=== PATIENT | male | born 1965 | race Caucasian/White ===

== ENCOUNTER → 2016-03-12 | Day surgery (SDC) | payer OTHER ==
[2016-02-11 15:50] VITALS: BMI 27.0
[2016-02-11 16:14] VITALS: BMI 27.0
--- NOTE | 2016-02-12 16:16 | Anesthesiology Progress Note ---
Anesthesia Progress Note Date of Service Feb 12, 2016. Progress Notes Spoke with PCP office regarding patient's seizure history. Per Trista at [facility], she states she discussed with HARI Bush and Dr. French who feel patient needs neurology clearance prior to surgery (strong history of non-compliance with neuro appointments per PCP office). She states that she will attempt to send document stating these recommendations. Discussed with surgeon's office who state patient will be rescheduled after neuro clearance in obtained. Surgeon's office made aware to inform patient regarding the above. Nell Nikc PA-C
[~2016-03-12] VITALS: Ht 160 cm; Wt 71.4 kg
[~2016-03-12] MED LIST: ASPI81TA28 PO; ATOR-22 PO; ATROPINE SULFATE 0.1 MG/ML 5ML SYR IV PRN; BUPIVACAINE/EPINEPHRINE 0.5% MPF 1:200,000 30 ML VIAL INJ ONE; CEFAZOLIN 2000 MG/60 ML D5W IV SCH; CIPR-255 PO; DEXAMETHASONE SOD INJ 4 MG/ML VIAL ONE; ERGO500037 PO; EpHEDrine SULFATE INJ 50 MG/ML AMP IV PRN; FENTANYL CITRATE INJ 50 MCG/1 ML 2 ML VIAL ONE; GLYCOPYRROLATE INJ 0.2 MG/ML VIAL ONE; HEPARIN SOD 5000 UNIT/0.5 ML CARP SQ SCH; HYDR-5688 PO; HYDROCODONE/ACETAMOPHEN 5/325MG TAB PO PRN; IBUPROFEN 600 MG TAB PO PRN; KETOROLAC TROMETHAMINE 15 MG/ML VIAL IV PRN; KETOROLAC TROMETHAMINE 30 MG/ML VIAL ONE; LACTATED RINGER'S 1000ML 1,000 ML IV SCH; LAMO25TA PO; LEVO175T3 PO; LIDOCAINE 2% 20 MG/ML 5ML SYR ONE; MIDAZOLAM HCL 1 MG/ML 2ML VIAL ONE; MoRPHine SULFATE 2 MG/ML CARP IV PRN; MoRPHine SULFATE 4 MG/ML 1 ML CARP\\VIAL IV PRN; ONDANSETRON INJ 2 MG/ML 2 ML VIAL IV PRN; ONDANSETRON INJ 2 MG/ML 2 ML VIAL ONE; PHENYLEPHRINE 100MCG/ML 5ML SYR ONE; PROPOFOL IV EMULSION 10 MG/ML 20 ML VIAL IV ONE; SYN150 PO
[2016-03-12 10:19] VITALS: BP 106/69; PULSE 64; TEMP 36.6; O2SAT 97; Ht 160 cm; Wt 71.4 kg
--- NOTE | 2016-03-12 11:52 | History & Physical Bridge Note ---
H&P Re-Evaluation Bridge Note: I have examined the patient, reviewed the History & Physical and in the interval since the performance of the History & Physical I have noted the following changes of clinical significance: No changes noted
--- NOTE | 2016-03-12 11:58 | Discharge Instructions ---
Discharge Instructions Admission Reason for Admission: Right Inguinal Hernia Discharge Discharge Diagnosis / Problem: right inguinal hernia Discharge Goals Goal(s): Decrease discomfort, Improve function Activity Recommendations Activity Limitations: as noted below Lifting Limitations: no more than 10 pounds Exercise/Sports Limitations: until after follow-up appointment May Resume Sexual Activity: after follow-up appointment Shower/Bathe: tomorrow . Instructions / Follow-Up Instructions / Follow-Up follow up with dr. obrien within 1-2 weeks. Current Hospital Diet Patient's current hospital diet: Discharge Diet Recommended Diet: Regular Diet Pending Studies Studies pending at discharge: no Laboratory Results Lipid Panel Test 12/30/15 07:35 Range/Units Triglycerides Level 276 H 0-150 mg/dl Cholesterol Level 326 H 0-200 mg/dl HDL Cholesterol 62 mg/dl Cholesterol/HDL Ratio 5.3 LDL Cholesterol, Calculated 209 mg/dl Medical Emergencies . Who to Call and When: Medical Emergencies: If at any time you feel your situation is an emergency, please call 911 immediately. . Non-Emergent Contact Non-Emergency issues call your: Primary Care Provider, Surgeon Call Non-Emergent contact if: temperature is above 101, wound has increased drainage, wound has increased redness . "Provider Documentation" section prepared by Du Obrien. VTE Core Measure Inpt VTE Proph given/why not?: Unfractionated heparin SQ
--- NOTE | 2016-03-12 12:07 | History and Physical ---
History & Physical Date & Time of Service: Mar 12, 2016 at 12:04 Chief Complaint: Right Inguinal Hernia Primary Care Physician: Vilma Villegas C.R.N.P Past Medical/Surgical History Medical Problems: (1) Heart disease Status: Chronic (2) Seizure disorder Status: Chronic Surgical Problems: (1) History of hernia repair Status: Resolved (2) Hx of appendectomy Status: Resolved Family History Cancer Diabetes mellitus Heart disease Hypertension Social History Smoking Status: Current Every Day Smoker Marital Status: single Occupational Status: unemployed Allergies Coded Allergies: Prochlorperazine (Verified Allergy, Severe, "throat closes up", 03/12/16) Meloxicam (Verified Allergy, Unknown, FACIAL FLUSHING GI UPSET, 03/12/16) Tamsulosin (Verified Allergy, Unknown, UNKNOWN, 03/12/16) Home Medications Scheduled Aspirin (Aspirin Ec), 81 MG PO QAM Atorvastatin (Lipitor), 1 TAB PO HS Ciprofloxacin Hcl (Cipro), 500 MG PO BID Levothyroxine Sodium (Levothyroxine Sodium), 1 TAB PO DAILY Scheduled PRN Hydrocodone/Acetaminophen 5MG/325MG ([place] 5MG/325MG), 1-2 TABLET PO Q4 PRN for Pain Physical Exam Vital Signs Date Time Temp Pulse Resp B/P Pulse Ox O2 Delivery O2 Flow Rate FiO2 03/12/16 10:19 36.6 64 18 106/69 97 Room Air General Appearance: no apparent distress Head: normocephalic Eyes: normal inspection ENT: normal ENT inspection Neck: supple Respiratory/Chest: lungs clear Cardiovascular: no edema, no gallop Abdomen/GI: normal bowel sounds, soft Back: normal inspection Extremities/Musculoskelatal: normal inspection Neurologic/Psych: pedigree researcher II-XII nml as tested, no motor/sensory deficits Skin: normal color + RIH. tender. penis/testicles normal Impression Assessment and Plan RIH. discussed options/risks. plan open repair of hernia with mesh VTE Prophylaxis Given or contraindicated: Unfractionated heparin SQ
--- NOTE | 2016-03-12 13:28 | [facility] Operative Report ---
Operative Report Operative Date Mar 12, 2016. Pre-Operative Diagnosis Right Inguinal Hernia/recurrent Post-Operative Diagnosis recurrent right inguinal hernia Procedure(s) Performed open repair of recurrent right inguinal hernia with mesh Surgeon Dr. Du Obrien Supervisor Yard Surgeon(s) Pranav Hussein PA-C Estimated Blood Loss 10ml Findings small indirect and direct hernias Specimens No specimen Anesthesia GET Complication(s) None Disposition Recovery Room / PACU I attest to the content of the Intraoperative Record and any orders documented therein. Any exceptions are noted below.
[2016-03-12] MEDS: FENTANYL CITRATE INJ 50 MCG/1 ML 2 ML VIAL IV PRN ×3 (13:40→13:54)
--- NOTE | 2016-03-12 14:17 | Anesthesiology Progress Note ---
Anesthesia Post Op Note Date & Time Mar 12, 2016 at 14:17 Vital Signs Pain Intensity: 5 Vital Signs Past 12 Hours Date Time Temp Pulse Resp B/P Pulse Ox O2 Delivery O2 Flow Rate FiO2 03/12/16 14:10 36.6 03/12/16 14:08 112/75 03/12/16 14:05 63 18 99 03/12/16 14:05 63 18 03/12/16 14:03 115/77 03/12/16 14:00 64 16 93 03/12/16 14:00 61 16 03/12/16 13:59 59 16 03/12/16 13:59 58 16 118/74 93 03/12/16 13:55 114/86 03/12/16 13:54 67 19 03/12/16 13:54 68 19 95 03/12/16 13:49 57 16 03/12/16 13:49 58 16 100 03/12/16 13:48 101/78 03/12/16 13:44 62 14 108/80 100 03/12/16 13:44 63 14 03/12/16 13:40 137/88 03/12/16 13:39 66 14 03/12/16 13:39 66 14 100 03/12/16 13:34 61 16 100 03/12/16 13:34 36.6 61 14 119/72 100 Mask 10 03/12/16 13:34 61 16 03/12/16 10:19 36.6 64 18 106/69 97 Room Air Notes Mental Status: alert / awake / arousable, participated in evaluation Pt Amnestic to Procedure: Yes Nausea / Vomiting: adequately controlled Pain: adequately controlled Airway Patency, RR, SpO2: stable & adequate BP & HR: stable & adequate Hydration State: stable & adequate Anesthetic Complications: no major complications apparent
--- NOTE | 2016-03-12 14:23 | OPERATIVE REPORT ---
DATE OF OPERATION: 03/12/2016 PREOPERATIVE DIAGNOSIS: Recurrent right inguinal hernia. POSTOPERATIVE DIAGNOSIS: Direct and indirect recurrent right inguinal hernia. PROCEDURE: Open right inguinal hernia repair with mesh, open repair of recurrent right inguinal hernia with mesh. SURGEON: Dr. Obrein. PUBLICATIONS PRODUCTION SUPERVISOR: Hernandez Rock PA-C. ESTIMATED BLOOD LOSS: 10 mL. COMPLICATIONS: No immediate. ANESTHESIA: General. CONDITION: The patient tolerated the procedure well. OPERATIVE NOTE: After informed consent was obtained, the patient was taken to the operating suite and placed in the supine position. After successful intubation a Hackett catheter was placed and the right groin was shaved and sterilely prepped and draped in the usual fashion. An inguinal incision was made using a 10 blade scalpel and carried down through the soft tissue using electrocautery. The external oblique aponeurosis was skeletonized and opened with a fresh blade. It was extended distally through the ring and also several centimeters proximally. Once in the inguinal canal, there was some scarring. There was no old prior mesh, but there was a fair amount of scarring. We were able to free up the cord and cord structures using primarily blunt dissection. Eventually we were able to figure out the anatomy and noted a small distal direct hernia and there was also a small indirect hernia. We were able to free up the indirect sac from the cord and cord structures do not get back into the abdominal cavity. We were also able to easily reduce the direct hernia. Once we had all this accomplished, we placed a polypropylene lr hole mesh as an onlay. We secured distally the John's ligament laterally along the shelving portion of John's ligament and medially along the midline abdominal musculature. The "arms" were wrapped around behind the cord and cord structures and secured the underlying muscle. This was all performed with 0 Nurolon. Once this was done, the mesh laid nice and tension free. There was no cord impingement. We thoroughly irrigated the wound. There was adequate hemostasis at the end of the procedure. We injected the edges of the mesh with Marcaine. We then closed the external oblique aponeurosis with 2-0 Vicryl in a running fashion. Soft tissue was irrigated and closed using 3-0 Vicryl and 4-0 Monocryl. Some additional Marcaine was injected in the skin and soft tissue and the Dermabond glue was used as a dressing. The patient was awakened, extubated, and transferred to recovery in stable condition. I attest to the content of the Intraoperative Record and any orders documented therein. Any exceptio ns are noted below.
[2016-03-12 14:25] VITALS: BP 106/71; PULSE 64; TEMP 36.5; O2SAT 97
[2016-03-12 14:55] VITALS: BP 129/85; PULSE 69; O2SAT 98
[2016-03-12 15:25] VITALS: BP 142/91; PULSE 54; TEMP 37.1; O2SAT 99
== END | disposition home or self-care (01) ==
LOC: C.ACU 10:05
PROVIDERS: ATTEND Surgery
DX: K40.91 Unilateral inguinal hernia, without obstruction or gangrene, recurrent (principal); F41.9 Anxiety disorder, unspecified; N52.9 Male erectile dysfunction, unspecified; I25.2 Old myocardial infarction; G40.909 Epilepsy, unspecified, not intractable, without status epilepticus; F17.210 Nicotine dependence, cigarettes, uncomplicated

== ENCOUNTER 2016-04-28 15:16 | Emergency (ER) | payer OTHER ==
[~2016-04-28] VITALS: Ht 160 cm; Wt 70.0 kg
[~2016-04-28 15:16] MED LIST changes: -ATROPINE SULFATE 0.1 MG/ML 5ML SYR IV PRN; -BUPIVACAINE/EPINEPHRINE 0.5% MPF 1:200,000 30 ML VIAL INJ ONE; -CEFAZOLIN 2000 MG/60 ML D5W IV SCH; -DEXAMETHASONE SOD INJ 4 MG/ML VIAL ONE; -ERGO500037 PO; -EpHEDrine SULFATE INJ 50 MG/ML AMP IV PRN; -FENTANYL CITRATE INJ 50 MCG/1 ML 2 ML VIAL ONE; -GLYCOPYRROLATE INJ 0.2 MG/ML VIAL ONE; -HEPARIN SOD 5000 UNIT/0.5 ML CARP SQ SCH; -HYDROCODONE/ACETAMOPHEN 5/325MG TAB PO PRN; -IBUPROFEN 600 MG TAB PO PRN; -KETOROLAC TROMETHAMINE 15 MG/ML VIAL IV PRN; -KETOROLAC TROMETHAMINE 30 MG/ML VIAL ONE; -LACTATED RINGER'S 1000ML 1,000 ML IV SCH; -LAMO25TA PO; -LIDOCAINE 2% 20 MG/ML 5ML SYR ONE; -MIDAZOLAM HCL 1 MG/ML 2ML VIAL ONE; -MoRPHine SULFATE 2 MG/ML CARP IV PRN; -MoRPHine SULFATE 4 MG/ML 1 ML CARP\\VIAL IV PRN; -ONDANSETRON INJ 2 MG/ML 2 ML VIAL IV PRN; -ONDANSETRON INJ 2 MG/ML 2 ML VIAL ONE; -PHENYLEPHRINE 100MCG/ML 5ML SYR ONE; -PROPOFOL IV EMULSION 10 MG/ML 20 ML VIAL IV ONE; -SYN150 PO
[2016-04-28 15:24] VITALS: TEMP 36.6; O2SAT 98; Ht 160 cm; Wt 70.0 kg
[2016-04-28] MEDS ORDERED: ONDANSETRON INJ 2 MG/ML 2 ML VIAL IV STA (15:29)
[2016-04-28] MEDS ORDERED: SODIUM CHLORIDE 0.9% 1000ML 1,000 ML IV STA (15:29)
[2016-04-28] MEDS ORDERED: LAMO25TA PO (15:38)
[2016-04-28] MEDS ORDERED: ERGO500037 PO (15:38)
--- NOTE | 2016-04-28 15:59 | DIAGNOSTIC IMAGING REPORT ---
SINGLE VIEW CHEST CLINICAL HISTORY: Syncope. Generalized abdominal pain. FINDINGS: An AP, portable, upright chest radiograph is obtained. No prior studies are available for comparison at the time of dictation. The examination is mildly degraded by portable technique and patient rotation. The cardiomediastinal silhouette is unremarkable. The lungs and pleural spaces are clear. There is mild apical scarring. No pneumothorax is seen. The bony thorax is grossly intact. IMPRESSION: No active disease in the chest. Electronically signed by: Refugio Delvalle M.D. 04/28/2016 3:57 PM Dictated Date/Time: 04/28/2016 3:57 PM
[2016-04-28 16:41] LABS: BASO % 0.6 %; BASO ABS # 0.04 K/uL (0-0.2); COMPLETE YES; EOS % 2.7 %; HEMATOCRIT 44.6 % (42-52); IG% 0.1 %; LYMPH % 36.8 %; LYMPH ABS # 2.58 K/uL (1.2-3.4); MEAN CELL VOLUME 93.1 fL (80-100); MEAN CORPUSCULAR HEMOGLOBIN 31.5 pg (25-34); MEAN CORPUSCULAR HGB CONC 33.9 g/dl (32-36); MEAN PLATELET VOLUME 9.8 fL (7.4-10.4); MONO % 9.1 %; NEUT % 50.7 %; PLATELET COUNT 254 K/uL (130-400); RED BLOOD COUNT 4.79 M/uL (4.7-6.1); WHITE BLOOD COUNT 7.02 K/uL (4.8-10.8)
[2016-04-28 16:59] LABS: ALT/SGPT 28 U/L (12-78); BLOOD UREA NITROGEN 11 mg/dl (7-18); BUN/CREATININE RATIO 9.6 (10-20); CALCIUM 9.3 mg/dl (8.5-10.1); CARBON DIOXIDE 26 mmol/L (21-32); CHLORIDE 103 mmol/L (98-107); GLUCOSE 90 mg/dl (70-99); POTASSIUM 4.1 mmol/L (3.5-5.1); SODIUM 137 mmol/L (136-145)
[2016-04-28 17:01] LABS: ALKALINE PHOSPHATASE 68 U/L (45-117); AST/SGOT 29 U/L (15-37)
[2016-04-28 17:02] LABS: URINE APPEARANCE CLEAR (CLEAR); URINE BILIRUBIN NEG (NEG); URINE COLOR YELLOW; URINE EPITHELIAL CELL AUTO 0-5 /lpf (0-5); URINE NITRITE NEG (NEG); URINE PH 7.5 (4.5-7.5); URINE SPECIFIC GRAVITY 1.005 (1.000-1.030); UROBILINOGEN NEG (NEG); ZZUR CULT IF INDIC CLEAN CATCH NO
[2016-04-28 17:03] LABS: MANUAL MICROSCOPIC REQUIRED? NO; REVIEW REQ? NO
--- NOTE | 2016-04-28 17:59 | EMERGENCY ROOM VISIT NOTE ---
History Report prepared by Lina: Lizeth Mims Under the Supervision of: Dr. Speedy Bowles D.O. First contact with patient: 15:23 Stated Complaint: SYNCOPE History of Present Illness The patient is a 51 year old male who presents to the Emergency Room with complaints of two syncopal episodes beginning yesterday. The patient states that he had the flu last week and since then has been experiencing many episodes a day of diarrhea. He also notes abdominal pain. Beginning yesterday the patient experienced a syncopal episode. He notes he felt lightheaded before LOC and falling to the ground. Today the same syncopal episode occurred. He denies seizure like activity, biting of the tongue, or voiding himself during the episode. Source of History: patient Onset: yesterday Position: other Symptom Intensity: 2 Quality: other (syncope) Timing: other (episodes) Associated Symptoms: + abdominal pain, + diarrhea Note: He denies seizure like activity, biting of the tongue, or voiding himself during the episode. Review of Systems See HPI for pertinent positives & negatives. A total of 10 systems reviewed and were otherwise negative. Past Medical & Surgical Medical Problems: (1) Heart disease (2) Seizure disorder Surgical Problems: (1) History of hernia repair (2) Hx of appendectomy Family History Cancer Diabetes mellitus Heart disease Hypertension Social History Smoking Status: Current Every Day Smoker Alcohol Use: none Marital Status: single Housing Status: lives with significant other Occupation Status: unemployed Current/Historical Medications Scheduled Aspirin (Aspirin Ec), 81 MG PO QAM Atorvastatin (Lipitor), 1 TAB PO HS Ergocalciferol (Vitamin D 77551 Unit), 50,000 UNIT PO WK Lamotrigine (Lamictal), 50 MG PO BID Levothyroxine Sodium (Levothyroxine Sodium), 1 TAB PO DAILY Allergies Coded Allergies: Prochlorperazine (Verified Allergy, Severe, "throat closes up", 04/28/16) Meloxicam (Verified Allergy, Unknown, FACIAL FLUSHING GI UPSET, 04/28/16) Tamsulosin (Verified Allergy, Unknown, UNKNOWN, 04/28/16) Physical Exam Vital Signs Date Time Temp Pulse Resp B/P Pulse Ox O2 Delivery O2 Flow Rate FiO2 04/28/16 17:30 57 15 133/93 Room Air 04/28/16 16:45 64 18 133/83 98 Room Air 74 149/93 73 120/84 04/28/16 16:30 60 18 126/97 97 Room Air 04/28/16 16:15 63 04/28/16 15:24 98 Room Air 04/28/16 15:24 36.6 74 18 150/101 98 Room Air Physical Exam CONSTITUTIONAL/VITAL SIGNS: Reviewed / noted above. GENERAL: Non-toxic in appearance. INTEGUMENTARY: Warm, dry, and [place]. HEAD: Normocephalic. EYES: without scleral icterus or trauma. ENT/OROPHARYNX: clear and moist. LYMPHADENOPATHY/NECK: Is supple without lymphadenopathy or meningismus. RESPIRATORY: Lungs clear and equal. CARDIOVASCULAR: Regular rate and rhythm. GI/ABDOMEN: Soft and nontender. No organomegaly or pulsatile mass. No rebound or guarding. Normal bowel sounds. EXTREMITIES: Warm and well perfused. BACK: No CVA tenderness. NEUROLOGICAL: Intact without focal deficits. PSYCHIATRIC: normal affect. MUSCULOSKELETAL: Normally developed with good muscle tone. Medical Decision & Procedures ER Provider Diagnostic Interpretation: X ray results and stated below per my interpretation and radiology interpretation. SINGLE VIEW CHEST CLINICAL HISTORY: Syncope. Generalized abdominal pain. FINDINGS: An AP, portable, upright chest radiograph is obtained. No prior studies are available for comparison at the time of dictation. The examination is mildly degraded by portable technique and patient rotation. The cardiomediastinal silhouette is unremarkable. The lungs and pleural spaces are clear. There is mild apical scarring. No pneumothorax is seen. The bony thorax is grossly intact. IMPRESSION: No active disease in the chest. Electronically signed by: Refugio Delvalle M.D. 04/28/2016 3:57 PM Dictated Date/Time: 04/28/2016 3:57 PM Laboratory Results 04/28/16 16:25 Red Blood Count 4.79, Mean Corpuscular Volume 93.1, Mean Corpuscular Hemoglobin 31.5, Mean Corpuscular Hemoglobin Concent 33.9, Mean Platelet Volume 9.8, Neutrophils (%) (Auto) 50.7, Lymphocytes (%) (Auto) 36.8, Monocytes (%) (Auto) 9.1, Eosinophils (%) (Auto) 2.7, Basophils (%) (Auto) 0.6, Neutrophils # (Auto) 3.56, Lymphocytes # (Auto) 2.58, Monocytes # (Auto) 0.64, Eosinophils # (Auto) 0.19, Basophils # (Auto) 0.04 04/28/16 16:25 Test 04/28/16 16:00 04/28/16 16:25 Urine Color YELLOW Urine Appearance CLEAR (CLEAR) Urine pH 7.5 (4.5-7.5) Urine Specific Turner 1.005 (1.000-1.030) Urine Protein NEG (NEG) Urine Glucose (UA) NEG (NEG) Urine Ketones NEG (NEG) Urine Occult Blood NEG (NEG) Urine Nitrite NEG (NEG) Urine Bilirubin NEG (NEG) Urine Urobilinogen NEG (NEG) Urine Leukocyte Esterase NEG (NEG) Urine WBC (Auto) 0 /hpf (0-5) Urine RBC (Auto) 0-4 /hpf (0-4) Urine Hyaline Casts (Auto) 0 /lpf (0-5) Urine Epithelial Cells (Auto) 0-5 /lpf (0-5) Urine Bacteria (Auto) NEG (NEG) White Blood Count 7.02 K/uL (4.8-10.8) Red Blood Count 4.79 M/uL (4.7-6.1) Hemoglobin 15.1 g/dL (14.0-18.0) Hematocrit 44.6 % (42-52) Mean Corpuscular Volume 93.1 fL (80-100) Mean Corpuscular Hemoglobin 31.5 pg (25-34) Mean Corpuscular Hemoglobin Concent 33.9 g/dl (32-36) Platelet Count 254 K/uL (130-400) Mean Platelet Volume 9.8 fL (7.4-10.4) Neutrophils (%) (Auto) 50.7 % Lymphocytes (%) (Auto) 36.8 % Monocytes (%) (Auto) 9.1 % Eosinophils (%) (Auto) 2.7 % Basophils (%) (Auto) 0.6 % Neutrophils # (Auto) 3.56 K/uL (1.4-6.5) Lymphocytes # (Auto) 2.58 K/uL (1.2-3.4) Monocytes # (Auto) 0.64 K/uL (0.11-0.59) Eosinophils # (Auto) 0.19 K/uL (0-0.5) Basophils # (Auto) 0.04 K/uL (0-0.2) RDW Standard Deviation 51.9 fL (36.4-46.3) RDW Coefficient of Variation 15.4 % (11.5-14.5) Immature Granulocyte % (Auto) 0.1 % Immature Granulocyte # (Auto) 0.01 K/uL (0.00-0.02) Anion Gap 8.0 mmol/L (3-11) Est Creatinine Clear Calc Drug Dose 71.4 ml/min Estimated GFR () 90.9 Estimated GFR (Non- 78.4 BUN/Creatinine Ratio 9.6 (10-20) Calcium Level 9.3 mg/dl (8.5-10.1) Total Bilirubin 0.3 mg/dl (0.2-1) Direct Bilirubin < 0.1 mg/dl (0-0.2) Aspartate Amino Transf (AST/SGOT) 29 U/L (15-37) Alanine Aminotransferase (ALT/SGPT) 28 U/L (12-78) Alkaline Phosphatase 68 U/L (45-117) Total Protein 7.7 gm/dl (6.4-8.2) Albumin 3.8 gm/dl (3.4-5.0) Lipase 264 U/L (73-393) Laboratory results as stated above per my review. Medications Administered Medications (Trade) Dose Ordered Sig/Ashish Route Start Time Stop Time Status Last Admin Dose Admin Sodium Chloride (Nss 1000ml) 1,000 ml @ 999 mls/hr Q1H1M STAT IV 04/28/16 15:29 04/28/16 16:29 DC 04/28/16 16:28 999 MLS/HR Ondansetron HCl (Zofran Inj) 4 mg NOW STAT IV 04/28/16 15:29 04/28/16 15:38 DC 04/28/16 16:31 4 MG ECG Indication: syncope Rate (beats per minute): 61 Rhythm: normal sinus Findings: no acute ischemic change, no ectopy ED Course 1524: Previous medical records were reviewed. The patient was evaluated in room C7. A complete history and physical examination was performed. 1529: Zofran Inj 4 mg IV, Sodium Chloride 1,000 ml @ 999 mls/hr IV. 1759: On reevaluation, the patient is hemodynamically stable. I discussed the results and findings with the patient. He verbalized agreement of the treatment plan. He was discharged home. Medical Decision Differential includes acute coronary syndrome, myocardial infarction, CVA, TIA, anemia, infection, pneumonia, UTI, pyelonephritis, poor nutrition, dehydration, electrolyte disturbance,hypoglycemia. The patient is a 51 year old male who presents to the ED with complaints of syncopal episodes. The patient states that he has had diarrhea constantly for the past week. He has been having some lightheadedness and reports that he passed out twice over the past 2 days. He denies injuring himself. He denies any chest pains, shortness of breath, headaches. Vital signs are stable. Physical exam did not reveal any obvious abnormalities. He reports some mild right lower quadrant tenderness with palpation. He had a recent hernia repair and states that his incision site hurts because he has been coughing a lot. He denies a productive cough. He reports that his has had similar symptoms as well but hers have resolved. Vital signs are stable. Exam was normal. Orthostatic vital signs are normal. EKG showed a sinus rhythm. His chest x- ray was negative for acute disease. CBC is unremarkable. Complete metabolic panel was normal. Lipase and urine were unremarkable. The patient was unable to give a stool sample here. He was treated with IV Zofran and IV fluids normal saline. The patient was felt to be stable for discharge. Impression Primary Impression: Syncope Additional Impression: Diarrhea Scribe Attestation The scribe's documentation has been prepared under my direction and personally reviewed by me in its entirety. I confirm that the note above accurately reflects all work, treatment, procedures, and medical decision making performed by me. Departure Information Dispostion Home / Self-Care Referrals (PCP) Forms HOME CARE DOCUMENTATION FORM, IMPORTANT VISIT INFORMATION Patient Instructions Diarrhea, My [facility] Additional Instructions Follow-up with your doctor for further care and evaluation in 1-2 days. Return to the emergency department for worsening or new symptoms or any concerns. You have been examined and treated today on an emergency basis only. This is not a substitute for, or an effort to provide, complete comprehensive medical care. It is impossible to recognize and treat all injuries or illnesses in a single emergency department visit. It is therefore important that you follow up closely with your doctor. Call as soon as possible for an appointment. Problem Qualifiers
[2016-04-28 18:48] VITALS: BP 132/76; PULSE 89; O2SAT 98
== END 2016-04-28 18:50 | disposition home or self-care (01) ==
LOC: EDBD 15:16 → C.EDC 15:17
DX: R55 Syncope and collapse (principal); R19.7 Diarrhea, unspecified; I51.9 Heart disease, unspecified; G40.909 Epilepsy, unspecified, not intractable, without status epilepticus; Z80.9 Family history of malignant neoplasm, unspecified; Z83.3 Family history of diabetes mellitus; Z82.49 Family history of ischemic heart disease and other diseases of the circulatory system; F17.210 Nicotine dependence, cigarettes, uncomplicated; Z79.82 Long term (current) use of aspirin; Z79.899 Other long term (current) drug therapy

== ENCOUNTER → 2016-08-14 | Outpatient (CLI) | payer OTHER ==
[~2016-08-14] MED LIST changes: -CIPR-255 PO; +ERGO500037 PO; -HYDR-5688 PO; +LAMO25TA PO
--- NOTE | 2016-08-14 15:26 | DIAGNOSTIC IMAGING REPORT ---
LUMBAR SPINE 5 VIEWS HISTORY: Back pain Lumbar radiculopathy COMPARISON: None. FINDINGS: There is no fracture. Mild scoliosis. Moderate degenerative disc change throughout. Mild sclerosis vertebral endplates. IMPRESSION: Moderate degenerative change. No acute process. Electronically signed by: Noah Newell M.D. 08/14/2016 3:25 PM Dictated Date/Time: 08/14/2016 3:23 PM
== END | disposition home or self-care (01) ==
LOC: C.RADPV 15:00
PROVIDERS: ATTEND Family Medicine
DX: M54.16 Radiculopathy, lumbar region (principal)

== ENCOUNTER → 2016-11-26 | Outpatient (CLI) | payer OTHER ==
--- NOTE | 2016-11-26 10:12 | DIAGNOSTIC IMAGING REPORT ---
ABDOMEN 2VIEW W/PA CHEST RTN HISTORY: 51 years-old Male ABDOMINAL PAIN RUQ acute right upper quadrant abdominal pain for 2 weeks. Initial exam. COMPARISON: Chest radiograph 04/28/2016, CT abdomen and pelvis 02/25/2016 TECHNIQUE: Frontal view the chest with erect and supine views of the abdomen FINDINGS: Cardiomediastinal and hilar silhouettes are within normal limits. No pneumothorax, pleural effusion or focal airspace consolidation. There is no overt pulmonary edema. Remote distal right clavicular fracture noted. There is mild convex right curvature of the midthoracic spine. No pneumoperitoneum on the upright projection. Bowel gas pattern is nonobstructive. No urolith identified. Phleboliths of the left hemipelvis redemonstrated. No organomegaly. There is mild facet arthropathy in the lower lumbar spine. IMPRESSION: 1. Nonobstructive bowel gas pattern without pneumoperitoneum. 2. No urolith. 3. No acute cardiopulmonary process. The above report was generated using voice recognition software. It may contain grammatical, syntax or spelling errors. Electronically signed by: Toño Eden M.D. 11/26/2016 10:11 AM Dictated Date/Time: 11/26/2016 10:08 AM
[2016-11-26 12:03] LABS: BASO % 0.7 %; BASO ABS # 0.08 K/uL (0-0.2); COMPLETE YES; EOS % 2.9 %; HEMATOCRIT 50.5 % (42-52); IG% 0.4 %; LYMPH % 18.2 %; LYMPH ABS # 2.03 K/uL (1.2-3.4); MEAN CELL VOLUME 97.1 fL (80-100); MEAN CORPUSCULAR HEMOGLOBIN 33.5 pg (25-34); MEAN CORPUSCULAR HGB CONC 34.5 g/dl (32-36); MEAN PLATELET VOLUME 10.3 fL (7.4-10.4); MONO % 8.2 %; NEUT % 69.6 %; PLATELET COUNT 339 K/uL (130-400); WHITE BLOOD COUNT 11.16 K/uL (4.8-10.8)
[2016-11-26 12:47] LABS: ALT/SGPT 17 U/L (12-78); AMYLASE 96 U/L (25-115); BLOOD UREA NITROGEN 14 mg/dl (7-18); BUN/CREATININE RATIO 12.9 (10-20); CALCIUM 9.8 mg/dl (8.5-10.1); CARBON DIOXIDE 26 mmol/L (21-32); CHLORIDE 106 mmol/L (98-107); GLUCOSE 94 mg/dl (70-99); POTASSIUM 4.7 mmol/L (3.5-5.1); SODIUM 138 mmol/L (136-145)
[2016-11-26 12:49] LABS: ALKALINE PHOSPHATASE 69 U/L (45-117); AST/SGOT 20 U/L (15-37)
== END | disposition home or self-care (01) ==
LOC: C.RADPV 09:35
PROVIDERS: ATTEND Family Medicine
DX: R10.11 Right upper quadrant pain (principal)

== ENCOUNTER → 2016-12-02 | Outpatient (CLI) | payer OTHER ==
--- NOTE | 2016-12-02 11:22 | DIAGNOSTIC IMAGING REPORT ---
ABDOMEN LIMITED (US) CLINICAL HISTORY: 51 years-old Male presenting with R10.11 Abdominal pain, RUQ (right upper quadrant)[id number]. TECHNIQUE: Real-time grayscale and limited color Doppler ultrasound imaging of the abdomen limited to the right upper quadrant was performed. COMPARISON: CT from 02/25/2016. FINDINGS: Pancreas: Visualized portions of the pancreatic head and body normal. Liver: Normal echogenicity and echotexture. The liver measures 16.6 cm in maximal sagittal dimension. No sonographic evidence of hepatic mass. Main portal vein patent with normal directional flow. Biliary: No intrahepatic biliary ductal dilatation. Common bile duct measures up to 4 mm in diameter. Gallbladder: No evidence of gallstones, gallbladder wall thickening, gallbladder distention, or pericholecystic fluid or inflammatory change. Right kidney: Normal in appearance. No hydronephrosis. Ascites: None. Other: At the site of clinical interest in the right lower quadrant, no abnormalities detected. No focal fluid collection or hyperemia. IMPRESSION: Normal right upper quadrant ultrasound. Electronically signed by: Chris Wynn M.D. 12/02/2016 11:21 AM Dictated Date/Time: 12/02/2016 11:14 AM
== END | disposition home or self-care (01) ==
LOC: C.ULTR 10:06
PROVIDERS: ATTEND Family Medicine
DX: R10.11 Right upper quadrant pain (principal)

== ENCOUNTER → 2017-03-30 | Outpatient (CLI) | payer OTHER ==
--- NOTE | 2017-03-30 11:58 | DIAGNOSTIC IMAGING REPORT ---
RIGHT INGUINAL ULTRASOUND TO ASSESS FOR HERNIA CLINICAL HISTORY: Deep right inguinal pain. Evaluate for recurrent hernia. COMPARISON STUDY: CT of the abdomen and pelvis February 25, 2016. FINDINGS: Sonography of the right inguinal region revealed no evidence for recurrent hernia. Shadowing may be from a previous mesh. A 2 morphologically benign right inguinal lymph nodes are incidentally noted. IMPRESSION: No sonographic evidence of recurrent right inguinal hernia although evaluation is made difficult by shadowing related to the hernia mesh. Electronically signed by: Kings Kumar M.D. 03/30/2017 11:57 AM Dictated Date/Time: 03/30/2017 11:55 AM
== END | disposition home or self-care (01) ==
LOC: C.ULTR 10:36
PROVIDERS: ATTEND Nurse Practitioner
DX: R10.30 Lower abdominal pain, unspecified (principal)

== ENCOUNTER → 2017-04-22 | Outpatient (CLI) | payer OTHER ==
[2017-04-22 12:41] LABS: HEMATOCRIT 41.1 % (42-52); HEMOGLOBIN 13.7 g/dL (14.0-18.0); MEAN CELL VOLUME 99.5 fL (80-100); MEAN CORPUSCULAR HEMOGLOBIN 33.2 pg (25-34); MEAN CORPUSCULAR HGB CONC 33.3 g/dl (32-36); MEAN PLATELET VOLUME 10.2 fL (7.4-10.4); PLATELET COUNT 260 K/uL (130-400); RED CELL DISTRIBUTION WIDTH CV 14.7 % (11.5-14.5); RED CELL DISTRIBUTION WIDTH SD 53.8 fL (36.4-46.3); WHITE BLOOD COUNT 9.77 K/uL (4.8-10.8)
[2017-04-22 12:59] LABS: ALBUMIN 4.2 gm/dl (3.4-5.0); ALT/SGPT 22 U/L (12-78); BLOOD UREA NITROGEN 19 mg/dl (7-18); CALCIUM 9.2 mg/dl (8.5-10.1); CARBON DIOXIDE 28 mmol/L (21-32); CHOLESTEROL 172 mg/dl (0-200); CREATININE 1.07 mg/dl (0.60-1.40); GLUCOSE 88 mg/dl (70-99); POTASSIUM 4.1 mmol/L (3.5-5.1); SODIUM 139 mmol/L (136-145)
[2017-04-22 13:09] LABS: ALKALINE PHOSPHATASE 61 U/L (45-117); AST/SGOT 23 U/L (15-37); LDL CHOLESTEROL CALCULATED 113 mg/dl; TOTAL PROTEIN 7.8 gm/dl (6.4-8.2)
--- NOTE | 2017-04-30 11:37 | CODING QUERY MEDICAL NECESSITY ---
SUPPORTING DIAGNOSIS NEEDED A supporting diagnosis is required for the test/procedure performed on this patient in order for us to be reimbursed by the patient's insurance. Please provide a supporting diagnosis for the following test/procedure listed below next to the test name along with your signature. *If there is no additional diagnosis for this patient that would support the following test/procedure please document that below next to the test/procedure. Test(s)/Procedure(s) that require a supporting diagnosis: * VITAMIN B12 DIAGNOSIS: Provider Signature: Date: Thank you Kaylie [place] [employer] Once completed, please kindly fax back to [phone] For questions please call [phone]
== END | disposition home or self-care (01) ==
LOC: C.LABBFT 08:13
PROVIDERS: ATTEND Nurse Practitioner
DX: E78.00 Pure hypercholesterolemia, unspecified (principal); E03.9 Hypothyroidism, unspecified; E55.9 Vitamin D deficiency, unspecified

== ENCOUNTER → 2017-10-20 | Outpatient (CLI) | payer OTHER ==
--- NOTE | 2017-10-20 11:44 | EEG Procedure Note ---
EEG Procedure Note Date of Service Oct 20, 2017. Start / End Times Start Time: 9:55 AM End Time: 10:15 AM Referring Physician MORGAN Lozada History This is a 52-year-old male with a history of epilepsy currently off medications. EEG for further evaluation epilepsy and medication management. Home Medication List Scheduled Aspirin (Aspirin Ec), 81 MG PO QAM Atorvastatin (Lipitor), 1 TAB PO HS Ergocalciferol (Vitamin D 38968 Unit), 50,000 UNIT PO WK Lamotrigine (Lamictal), 50 MG PO BID Levothyroxine Sodium (Levothyroxine Sodium), 1 TAB PO DAILY Description This is a 21 electrode EEG with a single channel dedicated to limited EKG. The electrodes were placed in accordance with the International 10-20 system. At the start of the recording the patient was in an awake state. Background was well organized and composed of symmetric mixed alpha and beta frequencies. There was a symmetric well-formed moderate amplitude 9 Hz posterior dominant rhythm that was reactive to eye opening and closure. Hyperventilation was not done. Intermittent photic stimulation at various frequencies produced no abnormalities. There was no state changes or sleep transients. Interpretation This is a normal awake only routine EEG. There was no electrographic seizures or epileptiform discharges. Clinical Correlation A normal EEG does not rule out epilepsy if there is a strong clinical suspicion.
== END | disposition home or self-care (01) ==
LOC: C.NEUR 09:41
PROVIDERS: ATTEND Physician Assistant
DX: G40.909 Epilepsy, unspecified, not intractable, without status epilepticus (principal)